=== PATIENT | female | born 1970 | race Two or more races ===

== ENCOUNTER → 2016-06-30 | Outpatient (CLI) | payer OTHER ==
--- NOTE | 2016-06-30 15:45 | RAD ---
DATE: 06/30/2016 EXAM: DIGITAL DIAGNOSTIC BILATERAL HISTORY: Screening. Note is made of the screening examination 2 years ago and the diagnostic examination 08/03/2014. A six-month follow-up head been recommended associated with the diagnostic examination 08/03/2014. COMPARISON: Screening examination 2 years ago This study was interpreted with the benefit of Computerized Aided Detection (CAD ). FINDINGS: Breast Density: The breast parenchyma Is heterogeneiously dense, which could reduce sensitivity of mammography. Breast parenchyma level C. There has not been a significant change in the appearance of the breasts. Occasional benign-appearing calcifications are noted in the right breast. IMPRESSION: Benign findings BI-RADS CATEGORY: 2 BENIGN FINDING(S) RECOMMENDED FOLLOW-UP: 12M 12 MONTH FOLLOW-UP PQRS compliance statement: Patient information was entered into a reminder system with a target due date 06/30/2017 for the next mammogram. Mammography is a sensitive method for finding small breast cancers, but it does not detect them all and is not a substitute for careful clinical examination. A negative mammogram does not negate a clinically suspicious finding and should not result in delay in biopsying a clinically suspicious abnormality. "Our facility is accredited by the [employer] Mammography [employer]." CHRISTI[place]
== END | disposition home or self-care (01) ==
LOC: MAMMO 13:05
PROVIDERS: ATTEND Internal Medicine
DX: R92.8 Other abnormal and inconclusive findings on diagnostic imaging of breast (principal)
CPT/HCPCS: G0204; 77066

== ENCOUNTER → 2018-05-29 | Outpatient (CLI) | payer OTHER ==
[~2018-05-29] MED LIST: ALBU2.5V8 INH; CETI10TA22 PO; ESTR30CR VG; FLUT16SP NS; IBUP200T44 PO; METF500T16 PO
--- NOTE | 2018-05-29 10:02 | RAD ---
DATE: 05/29/2018 EXAM: MAMMO WILBER SCREENING BILATERAL HISTORY: Routine screening COMPARISON: 06/30/2016 This study was interpreted with the benefit of Computerized Aided Detection (CAD). Breast Density: HETERO The breast parenchyma is heterogenously dense, which could reduce sensitivity of mammography. Breast parenchyma level C. FINDINGS: 2-D and 3-D tomosynthesis imaging was performed in CC and MLO projections. No new or enlarging breast densities are seen. There are stable microcalcifications. No suspicious microcalcifications have developed. IMPRESSION: Stable mammograms without evidence of malignancy. BI-RADS CATEGORY: 2 BENIGN FINDING(S) RECOMMENDED FOLLOW-UP: 12M 12 MONTH FOLLOW-UP PQRS compliance statement: Patient information was entered into a reminder system with a target due date for the next mammogram. Mammography is a sensitive method for finding small breast cancers, but it does not detect them all and is not a substitute for careful clinical examination. A negative mammogram does not negate a clinically suspicious finding and should not result in delay in biopsying a clinically suspicious abnormality. "Our facility is accredited by the [employer] Mammography [employer]."
== END | disposition home or self-care (01) ==
LOC: MAMMO 08:05
PROVIDERS: ATTEND Internal Medicine
DX: Z12.31 Encounter for screening mammogram for malignant neoplasm of breast (principal); R92.0 Mammographic microcalcification found on diagnostic imaging of breast
CPT/HCPCS: 77063; 77067

== ENCOUNTER 2018-07-18 06:42 | Day surgery (SDC) | payer OTHER ==
[~2018-07-18] VITALS: Ht 175.3 cm; Wt 99.8 kg
[~2018-07-18 06:42] MED LIST changes: +AZTREONAM IV Push 1 GM VIAL. IVP PRN; +CLINDAMYCIN 900MG PREMIX 50 ML IV PRN; -IBUP200T44 PO
[2018-07-18] MEDS ORDERED: PROCHLORPERAZINE 10 MG/2 ML VIAL. IV PRN (07:00)
[2018-07-18] MEDS ORDERED: fentaNYL PF VIAL 100 MCG/2 ML VIAL IV PRN ×2 (07:00)
[2018-07-18] MEDS ORDERED: ONDANSETRON PF 4 MG/2 ML VIAL. IV PRN (07:00)
[2018-07-18] MEDS ORDERED: HYDROmorphone 2 MG/ML VIAL IV PRN (07:00)
[2018-07-18] MEDS ORDERED: LIDOCAINE 1% PF 2 ML VIAL. ID PRN (07:00)
[2018-07-18] MEDS ORDERED: MORPHINE SULFATE 2 MG/ML VIAL. IV PRN (07:00)
[2018-07-18] MEDS ORDERED: IV RINGERS,LACTATED 1000ML 1,000 ML IV SCH (07:00)
[2018-07-18 08:02] LABS: U PREG PATIENT NEGATIVE (NEG)
[2018-07-18] MEDS ORDERED: fentaNYL PF VIAL 100 MCG/2 ML VIAL ONE (08:59)
[2018-07-18] MEDS ORDERED: SEVOFLURANE 31 TO 60 MINUTES. IH ONE (08:59)
[2018-07-18] MEDS ORDERED: MIDAZOLAM HCL/PF 2 MG/2 ML VIAL. ONE (08:59)
[2018-07-18] MEDS ORDERED: PROPOFOL 20 ML IV ONE (09:00)
[2018-07-18] MEDS ORDERED: DEXAMETHASONE SOD PHOS 4 MG/ML VIAL ONE (09:00)
[2018-07-18] MEDS ORDERED: ONDANSETRON PF 4 MG/2 ML VIAL. ONE (09:00)
[2018-07-18] MEDS ORDERED: LIDOCAINE 2% PF 5 ML VIAL. ONE (09:00)
[2018-07-18] MEDS ORDERED: SILVER NITRATE STICK TP ONE ×2 (09:30)
[2018-07-18] MEDS ORDERED: LIDOCAINE 1%/EPI 1:100,000 20 ML VIAL. ONE (09:39)
--- NOTE | 2018-07-18 10:55 | PDOC ---
BRIEF OPERATIVE NOTE Date: July 18, 2018 Pre-Op Diagnosis 1. Amenorrhea 2. Endometrial polyp 3. Cervical Polyp Post-Op Diagnosis Same Procedure Performed Op [facility] Surgeon Dr. Capellan Anesthesia Type: General Blood Loss 5 ml Specimens Obtained endometrial polyp and cervical polyp Findings endometrial polyp and cervical polyp Complications none Operative Note see dictation ANDREW CAPELLAN Jr, MD July 18, 2018 10:55
--- NOTE | 2018-07-18 10:57 | DISCH ---
DISCHARGE INSTRUCTIONS Condition on Discharge Condition on Discharge: Stable Activity After Discharge Activity Instructions for Disc: Activity as tolerated Lifting Instructions after Dis: No heavy lifting Driving Instructions after Dis: Do not drive today Diet after Discharge Diet after Discharge: Regular Contacting the [facility] after DC Call your doctor for: Concerns you may have Follow-Up Follow up with: Dr. Capellan in 1 week. ANDREW CAPELLAN Jr, MD July 18, 2018 10:57
--- NOTE | 2018-07-18 11:10 | OP ---
DATE OF SURGERY: PREOPERATIVE DIAGNOSES: 1. Amenorrhea. 2. Endometrial polyp. 3. Cervical polyp. POSTOPERATIVE DIAGNOSES: 1. Amenorrhea. 2. Endometrial polyp. 3. Cervical polyp. PROCEDURE: Operative hysteroscopy and cervical polypectomy. SURGEON: Andrew Tejeda M.D. ANESTHESIA: GETA. ESTIMATED BLOOD LOSS: 5 mL. COMPLICATIONS: None. FINDINGS: Endometrial polyp as well as cervical polyp. SUMMARY: A 48-year-old woman with long history of amenorrhea was found to have cervical polyp on pelvic exam in the office and pelvic sonogram gave a high suspicion for an endometrial polyp. The patient was counseled on the risks, benefits and expectations of operative hysteroscopy and voiced clear understanding to proceed. The patient was also counseled on cervical polypectomy and voiced clear understanding to proceed. DESCRIPTION OF PROCEDURE: The patient was taken to the surgery suite and placed in the dorsal lithotomy position. She was prepped with Betadine solution and draped in sterile fashion. After adequate anesthesia, weighted speculum and curved Kim placed vaginally. Anterior lip of the cervix was grasped with single tooth tenaculum. Cervix was dilated with Hegar dilators up to a size 8. The TruClear hysteroscope was then placed. There was a small 0.5 cm polyp that was removed with the TruClear device. There was a larger 5 cm polyp that was removed with TruClear device. The rest of the uterine cavity was homogenous. The fallopian tube ostia appeared normal and patent bilaterally. We then proceeded with cervical polypectomy, in which the cervix was injected with 1% lidocaine with epinephrine. The cervical polyp was grasped with the pickups and excised with aid of curved Covarrubias scissors at the base of the cervical polyp. Silver nitrate was applied for hemostasis. The single tooth tenaculum was removed. Weighted speculum was removed. The patient tolerated the procedure well and was taken to the recovery room in stable condition. Sponge and needle count correct x 3. ANDREW TEJEDA MD DR: DARYN/alysa JOB#: [id number] / [id number]
[2018-07-18] MEDS ORDERED: IBUP200T44 PO (11:30)
[2018-07-18 11:40] VITALS: BP 110/60
--- NOTE | 2018-07-19 15:05 | PATHOLOGY ---
[facility] Accession Number: [id number] . 01 Material submitted: . PART A: cervix - CERVICAL POLYP PART B: endometrium - ENDOMETRIAL POLYP . 01 Clinical history: . Endometrial polyp. . 02 Diagnosis: A. Cervical polypectomy: - Endocervical polyp showing squamous metaplasia. . B. Endometrial curettings: - Endometrial polyp. . (JPM:hilda; 07/19/2018) MBR/07/19/2018 . 02 Comment: There is no evidence of malignancy. (JPM:hilda; 07/19/2018) . 02 Electronically signed: . Demian Lisa MD, Pathologist NPI- [id number] . 01 Gross description: . A. Received in formalin labeled "Snyder, Lyric, cervical polyp" is a 2.0 x 1.3 x 0.4 cm aggregate of fischer-white gelatinous material and pink-fischer soft tissue. The specimen is submitted entirely in cassette A1. . B. Received in formalin labeled "Snyder, Lyric, endometrial polyp" is a 2.4 x 1.0 x 0.3 cm aggregate of fischer-pink friable tissue fragments. The specimen is submitted in cassette B1. ([facility]; 07/18/2018) SYC/SYC . 02 Pathologist provided ICD-10: N84.0, N84.1 . 02 CPT . 983017, 398482 Specimen Comment: A courtesy copy of this report has been sent to Specimen Comment: [phone], . Specimen Comment: Report sent to / DR HAY Performed at: [address], [place], [place] [id number] MD Mike Ferreira MD Phone: [phone] Performed at: [address] [id number] MD Demian Lisa MD Phone: [phone]
== END 2018-07-18 12:15 | disposition home or self-care (01) ==
LOC: SURG 06:42
PROVIDERS: ATTEND Obstetrics & Gynecology
DX: N84.0 Polyp of corpus uteri (principal); N84.1 Polyp of cervix uteri; N91.2 Amenorrhea, unspecified; J45.909 Unspecified asthma, uncomplicated; E78.00 Pure hypercholesterolemia, unspecified; Z88.0 Allergy status to penicillin
CPT/HCPCS: 58558; 81025; A7015; J1100; J2001; J2250; J2405; J2704; J3010; J3490; 88305